=== PATIENT | female | born 1940 | race Two or more races ===

== ENCOUNTER 2017-11-25 21:26 | Emergency (ER) | payer OTHER ==
[~2017-11-25] VITALS: Ht 162.6 cm; Wt 53.5 kg
[2017-11-25] MEDS ORDERED: SYNTHROID50 MCG (21:36)
[2017-11-25] MEDS ORDERED: PNEU16DI2 (21:36)
[2017-11-25] MEDS ORDERED: FOSAMAX70 MG (21:37)
== END 2017-11-25 22:49 | disposition home or self-care (01) ==
LOC: ER 21:26
DX: T78.1XXA Other adverse food reactions, not elsewhere classified, initial encounter (principal); R21 Rash and other nonspecific skin eruption

== ENCOUNTER 2021-02-28 07:25 | Outpatient (CLI) | payer OTHER ==
[~2021-02-28 07:25] MED LIST: FOSAMAX70 MG; PNEU16DI2; SYNTHROID50 MCG
== END 2021-02-28 07:27 | disposition home or self-care (01) ==
LOC: TOM 07:25
PROVIDERS: ATTEND Internal Medicine Gastroenterology
DX: Q33.0 Congenital cystic lung (principal); R19.5 Other fecal abnormalities; R63.4 Abnormal weight loss